=== PATIENT | male | born 1955 | race African-American/Black ===

== ENCOUNTER 2017-10-29 20:14 | Emergency (ER) | payer OTHER, BC ==
[2017-10-29 21:01] VITALS: BP 127/82
[2017-10-29] MEDS ORDERED: Ibuprofen 600 MG Tab PO ONE (21:34)
[2017-10-29] MEDS ORDERED: Diphtheria,Pertussis(Acell),Tetanus Vaccine 0.5 ML SDV IM ONE (21:34)
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
== END 2017-10-29 22:05 | disposition home or self-care (01) ==
LOC: JD.ED 20:14
DX: T23.231A Burn of second degree of multiple right fingers (nail), not including thumb, initial encounter (principal); X10.2XXA Contact with fats and cooking oils, initial encounter; Z23 Encounter for immunization
CPT/HCPCS: 16020; 90471; 90715; 99283; A9270

== ENCOUNTER 2017-12-02 02:25 | Emergency (ER) | payer BC, OTHER ==
[2017-12-02 02:53] VITALS: BP 137/89
[2017-12-02] MEDS ORDERED: Ibuprofen 600 MG Tab PO ONE (05:49)
--- NOTE | 2017-12-02 05:49 | EDM.PDOC ---
ED HPI GENERAL MEDICAL PROBLEM - General Chief Complaint: Lower Extremity Injury/Pain Stated Complaint: SWOLLEN & PAINFUL FEET Time Seen by Provider: 12/02/17 04:36 Source of Information: Reports: Patient History Limitations: Reports: No Limitations - History of Present Illness INITIAL COMMENTS - FREE TEXT/NARRATIVE: The patient states that he has had right ankle pain and swelling for 2 weeks. No injury. The patient states that he has not tried any wyfi-pei-fytsyck medications or home remedies. No prior medical evaluation for this. The patient does not have a PCP. Right Feet Pain Score (Numeric/FACES): 10 - Related Data Allergies Allergy/AdvReac Type Severity Reaction Status Date / Time No Known Allergies Allergy Verified 12/02/17 02:53 Home Meds: Home Meds . [No Known Home Meds] 10/29/17 [History] Past Medical History - Past Surgical History Other HEENT Surgeries/Procedures: Dental surgeries x 2 Social & Family History - Tobacco Use Smoking Status *Q: Never Smoker Second Hand Smoke Exposure: No - Caffeine Use Caffeine Use: Reports: None - Alcohol Use Alcohol Use History: No - Recreational Drug Use Recreational Drug Use: No - Living Situation & Occupation Living situation: Reports: , Alone ( is in [place]) Occupation: Employed ([employer]) Review of Systems - Review of Systems Review Of Systems: ROS reveals no pertinent complaints other than HPI. ED EXAM, GENERAL - Physical Exam Exam: See Below Exam Limited By: No Limitations General Appearance: Alert, WD/WN, No Apparent Distress Extremities: Other (There is no stool swelling to the right ankle, when compared to the left. No other visible abnormalities, such as abrasion or sign of infection. There is considerable tenderness about the lateral malleolus; less tenderness to the medial malleolus, and minimal tenderness to the anterior and posterior ankle. No tenderness to the right foot or distal right leg. Neurovascular status of the right lower extremity is intact.) Course - Vital Signs Last Recorded V/S: Last Vital Signs Temp 36.9 C 12/02/17 02:48 Pulse 65 12/02/17 02:48 Resp 18 12/02/17 02:48 BP 137/89 12/02/17 02:48 Pulse Ox 100 12/02/17 02:48 - Orders/Labs/Meds Meds: Medications Discontinued Medications Generic Name Dose Route Start Last Admin Trade Name Freq PRN Reason Stop Dose Admin Ibuprofen 600 mg 12/02/17 05:49 12/02/17 05:56 Motrin PO 12/02/17 05:50 600 mg ONETIME ONE Administration - Re-Assessments/Exams Free Text/Narrative Re-Assessment/Exam: 12/02/17 05:52 The patient appears to have a 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 Gout is a possibility, although he does not have a history of podagra. He has not yet taken any medications for this - not even a Tylenol. I'm recommending that we start him on bwqm-hes-[id number] ibuprofen, to see if this helps. The patient did not seem satisfied with this. I explained that since the patient has not taken anything at all, we don't know if ibuprofen, which is generally easier on the stomach, would be effective, and I would prefer to try that before starting him on a stronger NSAID, which is more likely to be hard on his stomach. In the meantime, I am recommending that he follow-up with Dr. Gallegos for further evaluation, which may include aspiration of the joint. I recommended that he call Dr. Gallegos's office this morning, and that it is possible he could see Dr. Gallegos today. The patient seemed upset with this plan, stating that if he can't get in to see Dr. Gallegos today, he will just go to [place]. Departure - Departure Time of Disposition: 05:47 Disposition: Home, Self-Care 01 Condition: Good Clinical Impression: Arthritis of right ankle - Discharge Information *PRESCRIPTION DRUG MONITORING PROGRAM REVIEWED*: Not Applicable *COPY OF PRESCRIPTION DRUG MONITORING REPORT IN PATIENT SHERLY: Not Applicable Instructions: Arthritis, Eljg-cl-Aviy, Arthritis Referrals: PCP,None [Primary Care Provider] - Burton Gallegos MD [Physician] - Forms: ED Department Discharge Additional Instructions: You were seen in the emergency room for right ankle pain and swelling for the past 2 weeks. On examination, you appear to have arthritis of the right ankle. Gout is a possibility. We recommend that you start taking sviz-zvo-soykwml ibuprofen, 3 tablets (600 mg ) every 8 hours, with food. Follow-up with the Orthopedic Surgeon Dr. Gallegos at the next available appointment. If any other problems, please do not hesitate to return to the ER.
== END 2017-12-02 06:03 | disposition home or self-care (01) ==
LOC: JD.ED 02:25
DX: M19.071 Primary osteoarthritis, right ankle and foot (principal)
CPT/HCPCS: 99283; A9270

== ENCOUNTER 2020-09-12 21:54 | Emergency (ER) | payer BC ==
[2020-09-12 22:16] VITALS: BP 133/81; PULSE 83
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
== END 2020-09-12 22:55 | disposition home or self-care (01) ==
LOC: JD.ED 21:54
DX: M54.41 Lumbago with sciatica, right side (principal)
CPT/HCPCS: 99282; 99283

== ENCOUNTER 2021-10-01 07:16 | Emergency (ER) | payer BC, OTHER ==
[2021-10-01 07:27] VITALS: BP 149/90; PULSE 63
[2021-10-01] MEDS ORDERED: Sodium Chloride 0.9% 10 ML Syringe FLUSH PRN (07:50)
[2021-10-01] MEDS ORDERED: HYDROmorphone 0.5 MG/0.5 ML Syringe IVPUSH ONE ×2 (07:51→09:12)
[2021-10-01] MEDS ORDERED: Ondansetron 4 MG/2 ML SDV IVPUSH ONE (07:51)
[2021-10-01] MEDS ORDERED: Sodium Chloride 0.9% 1,000 ML IV SCH (08:00)
== END 2021-10-01 10:50 | disposition home or self-care (01) ==
LOC: JD.ED 07:16
DX: N20.0 Calculus of kidney (principal)
CPT/HCPCS: 36415; 74019; 74176; 80053; 81001; 83690; 85025; 86140; 96374; 96375; 96376; 99285; J1170; J2405; J3490; J7030

== ENCOUNTER 2022-05-21 02:44 | Emergency (ER) | payer BC ==
[2022-05-21 04:43] VITALS: BP 126/85; PULSE 69
== END 2022-05-21 04:43 | disposition home or self-care (01) ==
LOC: JD.ED 02:44
DX: R15.2 Fecal urgency (principal); Z87.891 Personal history of nicotine dependence
CPT/HCPCS: 74018; 74018-26; 99283

== ENCOUNTER 2022-05-21 22:21 | Emergency (ER) | payer BC ==
[2022-05-21 23:18] VITALS: BP 140/87; PULSE 66
[2022-05-21] MEDS ORDERED: Polyethylene Glycol/Electrolytes 4,000 ML Bottle PO ONE (23:36)
== END 2022-05-22 00:09 | disposition home or self-care (01) ==
LOC: JD.ED 22:21
DX: K59.00 Constipation, unspecified (principal)
CPT/HCPCS: 99283; A9270

== ENCOUNTER 2022-07-06 23:46 | Emergency (ER) | payer BC ==
[2022-07-06 23:56] VITALS: BP 122/75; PULSE 87
== END 2022-07-07 00:52 | disposition home or self-care (01) ==
LOC: JD.ED 23:46
DX: S63.91XA Sprain of unspecified part of right wrist and hand, initial encounter (principal); W00.0XXA Fall on same level due to ice and snow, initial encounter
CPT/HCPCS: 73130-26-RT; 73130-RT; 99283

== ENCOUNTER 2023-06-17 22:05 | Emergency (ER) | payer BC ==
[2023-06-17] MEDS ORDERED: guaiFENesin/Dextromethorphan 100-10 MG/5 ML Soln 5 ML Cup PO ONE (23:17)
[2023-06-17] MEDS ORDERED: Sodium Chloride 0.9% 10 ML Syringe FLUSH ONE (23:22)
[2023-06-17] MEDS ORDERED: Iopamidol 612 MG/ML 100 ML Bottle IVPUSH ONE (23:22)
[2023-06-17 23:31] LABS: BASOPHILS PERCENT AUTO 0.8 % (0.0-1.0); EOSINOPHILS ABSOLUTE AUTO 0.1 K/mm3 (0.0-0.4); HEMATOCRIT 43.8 % (42.0-52.0); HEMOGLOBIN 13.8 gm/dl (14.0-18.0); IMMATURE GRAN ABSOLUTE AUTO 0.01 K/mm3 (0.00-0.05); IMMATURE GRAN PERCENT AUTO 0.3 % (0.0-0.4); LYMPHOCYTES ABSOLUTE AUTO 2.1 K/mm3 (1.0-4.8); LYMPHOCYTES PERCENT AUTO 52.1 % (24.0-44.0); MEAN CORPUSCULAR HEMOGLOBIN 26.4 pg (28.0-32.0); MEAN CORPUSCULAR HGB CONC 31.5 g/dl (32.0-36.0); MEAN CORPUSCULAR VOLUME 83.9 fl (83.0-99.0); MEAN PLATELET VOLUME 9.6 fl (9.4-12.4); MONOCYTES ABSOLUTE AUTO 0.4 K/mm3 (0.0-0.8); NEUTROPHILS ABSOLUTE AUTO 1.4 K/mm3 (1.8-7.7); NEUTROPHILS PERCENT AUTO 34.8 % (41.0-71.0); PLATELET COUNT,PLT 183 K/mm3 (150-400); RED BLOOD CELL COUNT 5.22 M/mm3 (4.52-5.90); WHITE BLOOD CELL COUNT,WBC 3.99 K/mm3 (3.9-11.3)
[2023-06-17 23:40] LABS: CORONAVIRUS COVID-19 NAA NEGATIVE (NEGATIVE); INFLUENZA A NAA NEGATIVE (NEGATIVE)
[2023-06-17 23:52] LABS: A/G RATIO 0.8 (1-2); ALANINE AMINOTRANSFERASE,ALT 45 U/L (16-63); ALBUMIN 3.4 g/dl (3.4-5.0); ALKALINE PHOSPHATASE 59 U/L (46-116); ANION GAP 12.5 (5-15); ASPARTATE AMNIOTRANSFERASE,AST 24 U/L (15-37); BILIRUBIN TOTAL 0.3 mg/dL (0.2-1.0); BLOOD UREA NITROGEN,BUN 15 mg/dL (7-18); BUN/CREATININE RATIO 11.5 (14-18); CALCIUM 9.3 mg/dL (8.5-10.1); CARBON DIOXIDE,CO2 30 mEq/L (21-32); CHLORIDE,CL 102 mEq/L (98-107); CREATININE 1.3 mg/dL (0.7-1.3); ESTIMATED GFR 61 mL/min (>60); GLUCOSE RANDOM 89 mg/dL (70-99); POTASSIUM,K 4.5 mEq/L (3.5-5.1); PROTEIN TOTAL,TP 7.8 g/dl (6.4-8.2); SODIUM,NA 140 mEq/L (136-145)
[2023-06-18 01:07] VITALS: BP 145/88; PULSE 80
== END 2023-06-18 01:09 | disposition home or self-care (01) ==
LOC: JD.ED 22:05
DX: R05.3 Chronic cough (principal); R09.82 Postnasal drip; C61 Malignant neoplasm of prostate
CPT/HCPCS: 0240U; 36415; 71260; 80053; 83735; 85025; 99284; A9270; J3490; Q9967